=== PATIENT | female | born 1955 | race Caucasian/White ===

== ENCOUNTER 2016-11-30 14:31 | Inpatient (IN) | payer MEDICARE, OTHER ==
--- NOTE | ~2016-11-30 | HP ---
Unit #: [id number] #: [id number] Patient: SANTOS SAN [id number] [address] [address] [id number] I MR#: [id number] NAME: SANTOS SAN ROOM: 56337 Age: 61 Sex: F Admission Date: 11/30/2016 : 1955 Attending Physician: Alicia Sun M.D. Primary Care Physician: Balaji Mattehws M.D. HISTORY AND PHYSICAL CHIEF COMPLAINT Strokelike symptoms. HISTORY OF PRESENT ILLNESS The patient is a 61-year-old female with a past medical history of congestive heart failure, mental retardation, borderline personality, and PICA, who presented to the emergency department from the care facility for evaluation of the above. History is obtained from chart review and discussion with ER staff, as well as from the person accompanying the patient from the facility. The patient was apparently in her usual state of health until the morning of admission when she had abnormal speech. She was apparently woken up around 7:30. She had physical therapy at 8:45 and stated that she felt sleepy. The patient was apparently put back to bed around 9:45 and reportedly slept from 10:15 to 11:30 when she woken up again to check vital signs. Per the facility sales donor recruitment representative, her vital signs were abnormal (no details), and she was sent to the emergency department for further evaluation. Upon arrival in the emergency department, a code stroke was called. She was seen by Neurology. She was very combative and not cooperative. She was noted to have garbled speech but was otherwise nonfocal. A CT of the head was done and showed nothing acute. She was not thought to be a candidate for any type of intervention. Chest x-ray shows bilateral infiltrates and congestion. Her initial temperature was 95.7 and blood pressure 107/47. She was given a milligram of Ativan due to severe agitation. Blood pressure then dropped into the 80s systolic. She was given a 500 mL normal saline bolus, as well as two grams of vancomycin. She is being admitted to [facility] for evaluation and further treatment. PAST MEDICAL HISTORY 1. Mental retardation. 2. Borderline personality. 3. PICA. 4. Immobility. PAST SURGICAL HISTORY 1. Cataract surgery. 2. Colonoscopy October 06, 2010, was normal. 3. Open reduction and internal fixation right ring finger. SOCIAL HISTORY Unit #: [id number] #: [id number] Patient: SANTOS SAN The patient lives in a facility. There is no tobacco or alcohol use. She is immobile. She has a guardian (Unruly Palomares, phone number [phone], ext. [phone]). FAMILY HISTORY Unobtainable. ALLERGIES HONEY AND CEPHALOSPORINS. HOME MEDICATIONS 1. Tylenol 500 mg t.i.d. 2. Zyloprim 200 mg at bedtime. 3. Brimonidine eyedrops t.i.d. 4. Certa-Rebecca daily. 5. Divalproex 1000 mg at bedtime. 6. Escitalopram 10 mg at bedtime. 7. Fish oil twice daily. 8. Floranex daily. 9. Lasix 10 mg daily. 10. Glucosamine 500 mg twice daily. 11. Latanoprost eyedrops at bedtime. 12. L-Carnitine 500 mg in the morning. 13. Levothyroxine 25 mcg daily. 14. Magnesium 800 mg at bedtime. 15. ReVia 50 mg at bedtime. 16. Oyster shell plus D daily. 17. Ranitidine 75 mg twice daily. 18. Timolol eyedrops 3 times daily. 19. Loperamide p.r.n. 20. Maalox p.r.n. 21. Milk of Magnesia p.r.n. REVIEW OF SYSTEMS The patient is on a special diet. At home, she is on thin liquids and no straws. PHYSICAL EXAMINATION VITAL SIGNS: Temperature is 95.7, pulse 63, respirations 18, blood pressure 107/47, and oxygen saturation 99% on 2 liters. GENERAL: Patient is a female who is currently lethargic following Ativan. She was initially combative. HEENT: Head is atraumatic. Mucous membranes are moist. NECK: Supple. Trachea is midline. CARDIOVASCULAR: Regular rate and rhythm. LUNGS: A few scattered rhonchi. Breathing is not labored. ABDOMEN: Soft and nontender with bowel sounds present in all four quadrants. EXTREMITIES: No pedal edema. Nontender. NEUROLOGIC: Patient is really uncooperative for exam. Upon presentation, she was agitated and moving all extremities. She was noted to have slurred speech, but otherwise, nothing focal. PSYCHIATRIC: Unable to assess. Again, she was quite agitated initially. SKIN: Skin of examined areas is warm and dry. DIAGNOSTIC STUDIES LABORATORY: Complete blood count notable for MCV of 105.1 and platelets are 139,000. Troponin is less than 0.05. INR is 0.9. Urinalysis is Unit #: [id number] #: [id number] Patient: SANTOS SAN essentially normal. Comprehensive metabolic panel notable for a bicarb of 32, alkaline phosphatase 93, and albumin 3.3. Lactic acid is 1.7. IMAGING: Chest x-ray shows bilateral infiltrates and congestion. CT of the head shows nothing acute. CARDIOLOGY: EKG shows normal sinus rhythm with a rate of 60 beats per minute. ASSESSMENT The patient is a 61-year-old female with: 1. Altered mental status. 2. Abnormal speech. 3. Congestive heart failure exacerbation with unknown ejection fraction. 4. Possible healthcare-associated pneumonia. The patient received vancomycin in the emergency department. 5. Possible sepsis. 6. Mental retardation. 7. Borderline personality. 8. Posterior inferior communicating artery. 9. Immobility. PLAN 1. Admit to ICU. 2. N.p.o. until speech evaluation. 3. Speech Therapy to evaluate and treat. 4. TSH, B12, and folate. 5. Neuro checks. 6. Consult Dr. Gutierrez regarding altered mental status and abnormal speech. 7. A 2D echo for further evaluation of CHF. 8. Strict I/Os. 9. Daily weights. 10. Serial cardiac enzymes. 11. Consult Dr. Capone regarding CHF. 12. Dobutamine drip for MAP greater than 65. 13. Blood cultures x2. 14. Sputum culture and sensitivity. 15. Supplemental oxygen for saturations greater than 92%. 16. Procalcitonin level. 17. Streptococcal and legionella urine antigens. 18. Vancomycin IV, tobramycin IV, Levaquin, and aztreonam for possible healthcare-associated pneumonia pending further workup. 19. Sepsis protocol (1) with repeat admission and healthcare-associated pneumonia. 20. DuoNebs. 21. Protonix for GI prophylaxis. 22. SCDs for DVT prophylaxis. 23. Repeat labs in the morning. 24. Additional workup and consultants based on above. Thirty-two (32) minutes critical care time spent in the care of this patient (2:35 to 3:07 p.m.). Dictated by Jay Lang/markus Unit #: [id number] #: [id number] Patient: SANTOS SAN TD: 11/30/2016 15:45 JOB #: [id number] HISTORY AND PHYSICAL Page 1 of 1 X Alicia Sun MD X HISTORY AND PHYSICAL
--- NOTE | ~2016-11-30 | CR72 ---
[facility] A Service of [facility] & [facility] RADIOLOGY TEXT RESULTS PATIENT: SANTOS SAN [facility] UN[facility] #: [id number] AGE: [address]: Alicia Sun MD SEX: F ORDER DR: [id number] [facility] [address] [place], [place] [address] [id number] E MR#: [id number] Acc #: [id number] NAME: SANTOS SAN : 1955 SEX: F STUDY DATE/TIME: 11/30/2016 13:42 UNIT: [facility] ROOM: STUDY DESCRIPTION: CR Chest Single View Portable Attending Physician: James Vallejo M.D. Ordering Physician: James Vallejo M.D. Primary Care Physician: Balaji Matthews M.D. MEDICAL IMAGING REPORT This report is preliminary unless electronic signature is present EXAM Portable chest 11/30/2016 HISTORY Shortness of breath onset today. TECHNIQUE Single view of the chest was obtained. FINDINGS Cardiomegaly is noted. The aorta is tortuous and ectatic. In the lungs pulmonary vascular markings are mildly prominent. No pleural fluid is seen. No definite focal infiltrates are noted. Interstitial markings are mildly prominent as well. IMPRESSION Mild nonspecific bilateral interstitial infiltrates and vascular congestion noted. This likely reflects interstitial edema from heart disease. Cardiomegaly is seen and the aorta is tortuous. No previous studies available for comparison. Dictated by... Solo Ontiveros M.D. THIS IS AN ELECTRONICALLY VERIFIED REPORT Solo Ontiveros M.D. at 11/30/2016 6:02 PM BOBBI/violeta TD: 11/30/2016 15:28 JOB #: [id number] MEDICAL IMAGING REPORT Page 1 of 1 COPY
--- NOTE | ~2016-11-30 | CO ---
Unit #: [id number] #: [id number] Patient: SANTOS SAN [id number] [address] [address] [id number] I MR#: [id number] NAME: SANTOS SAN ROOM: 99259 Age: 61 Sex: F Admission Date: 11/30/2016 : 1955 Attending Physician: Alicia Sun M.D. Primary Care Physician: Balaji Matthews M.D. Consultation Date: 11/30/2016 CONSULTATION REPORT REASON FOR CONSULTATION Critical care management. CHIEF COMPLAINT Stroke-like symptoms. HISTORY OF PRESENT ILLNESS A 61-year-old female with a past medical history of mental retardation, PICA syndrome, and history of chronic immobility, who lives in a healthcare facility, was transferred here because patient was combative and a code stroke was called. On admission to the emergency room, patient was combative and was given sedatives. I am seeing the patient at the bedside. Currently, she is pretty sedated. She is arousable but does not follow commands. REVIEW OF SYSTEMS Unobtainable. PAST MEDICAL HISTORY As described above. PAST SURGICAL HISTORY 1. Cataract. 2. Colonoscopy. 3. Right ring finger surgery. SOCIAL HISTORY Nonsmoker, no alcohol, and no drug abuse. FAMILY HISTORY Unobtainable. ALLERGIES HONEY AND CEPHALOSPORINS. MEDICATIONS 1. Tylenol. 2. Zyloprim. 3. Brimonidine. 4. Certa-Rebecca. 5. Divalproex. 6. Escitalopram. 7. Fish oil. 8. Floranex. Unit #: [id number] #: [id number] Patient: SANTOS SAN 9. Lasix. 10. Glucosamine. 11. Latanoprost. 12. L-Carnitine. 13. Levothyroxine. 14. Magnesium. 15. ReVia. 16. Oyster shell plus D. 17. Ranitidine. 18. Timolol. 19. Loperamide. 20. Maalox. 21. Milk of Magnesia. PHYSICAL EXAMINATION VITAL SIGNS: Temperature currently is 95, pulse 74, and blood pressure is 84/57. NEUROLOGICAL: She is lethargic. CARDIOVASCULAR: S1 plus S2. RESPIRATORY: Bilateral mild rhonchi. GASTROINTESTINAL: Nontender and soft. Bowel sounds positive. EXTREMITIES: Positive edema. DIAGNOSTIC STUDIES LABORATORY: Reviewed. Procalcitonin 0.05. White count is normal. IMAGING: Reviewed. ASSESSMENT 1. Altered mental status, rule out cerebrovascular accident. 2. Hypotension requiring pressors. 3. Questionable congestive heart failure with exacerbation, unlikely pneumonia. PLAN Admit the patient. Empiric antibiotic has been started. Will follow the cultures. Start patient on pressors. May need stress-dose steroid. Check a stat blood gas. Neurology following. Follow their recommendations. GI and DVT prophylaxis. Continue to monitor in the intensive care unit. We will place a central line as well. Thank you very much for this consultation. Total critical care time 65 minutes. Dictated by... Jay Carrasquillo/markus TD: 11/30/2016 18:53 JOB #: [id number] Unit #: [id number] #: [id number] Patient: SANTOS SAN CONSULTATION REPORT Page 1 of 1 X Yosi Cuadra MD X CONSULTATION REPORT
--- NOTE | ~2016-11-30 | CT57 ---
[facility] A Service of [facility] & [facility] RADIOLOGY TEXT RESULTS PATIENT: SANTOS SAN LOCATION: [address] : [birth year] UNIT #: [id number] AGE: [address]: Kimberly Walton MD SEX: F ORDER DR: [id number] [facility] [address] [place], [place] [address] [id number] I MR#: [id number] Acc #: [id number] NAME: SANTOS SAN : 1955 SEX: F STUDY DATE/TIME: 12/01/2016 8:09 UNIT: [facility] ROOM: [facility] STUDY DESCRIPTION: CT Chest Wo Cont Attending Physician: Kimberly Walton M.D. Ordering Physician: William Capone M.D. Primary Care Physician: Balaji Matthews M.D. MEDICAL IMAGING REPORT This report is preliminary unless electronic signature is present EXAM CT scan of the chest without contrast. HISTORY Evaluate abnormality seen on chest x-ray, 12/01/2016. Evaluate bilateral infiltrates. Followup possible infiltrates seen yesterday. COMPARISON STUDIES CT chest, 11/30/2016. TECHNIQUE Axial 5 mm images were obtained through the chest without IV contrast. This CT exam was performed with one or more of the following radiation dose reduction techniques: automatic exposure control, adjustment of mA and/or kV according to patient size, and iterative reconstruction. FINDINGS The study is somewhat limited by patient size. There is minimal atelectasis in the right base. I do not see any evidence of infiltrate in the upper lobes on either side. The gallbladder is normal. The aorta is normal in size and there is no mediastinal or hilar adenopathy. The visualized portions of the upper abdomen show a large low-density well-circumscribed area in the spleen. This about 5.7 cm in diameter and appears to be septated. This was present on the CT scan of the abdomen, 03/07/2016 and is not changed. IMPRESSION 1. No infiltrates are identified. There is minimal basilar atelectasis. 2. 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 3. Otherwise, the study is negative. [facility] A Service of [facility] & [facility] RADIOLOGY TEXT RESULTS PATIENT: SANTOS SAN LOCATION: [facility]3-17 : 55 UNIT #: [id number] AGE: [address]: Kimberly Walton MD SEX: F ORDER DR: Dictated by... Bon Patterson M.D. THIS IS AN ELECTRONICALLY VERIFIED REPORT Bon Patterson M.D. at 12/01/2016 2:31 PM CHIDI/dipesh TD: 12/01/2016 10:13 JOB #: [id number] MEDICAL IMAGING REPORT Page 1 of 1 COPY
--- NOTE | ~2016-11-30 | BMI ---
[facility] Nutrition Therapy DATE: 12/01/16 Patient: SANTOS SAN Physician: PRASHANT Address: [address] [place] [address] Room/Bed: [address], Zip: [place] [address] Admit Date: 11/30/16 Date of : [birth year] Height: 5 7 Weight: 266 121 HIGH BMI NOTE: ANTHROPOMETRICS: HT: 68" WT: 120.5 KG BMI: 40.4 INTERVENTION: 1. PUREED DIET/ HH/CC + HONEY THICK LIQUIDS RECOMMENDATIONS: 1. CONTINUE DIET PER ROPE CUTTER RECOMMENDATIONS WITH HH/CC RESTRICTIONS. Respectfully, GOYO NEWMAN RD, LD [employer] and Nutrition[facility] cc: client file
--- NOTE | ~2016-11-30 | US84 ---
[id number] [facility] [address] [place], [place] [address] [id number] I MR#: [id number] Acc #: [id number] NAME: SANTOS SAN : 1955 SEX: F STUDY DATE/TIME: 12/03/2016 10:46 UNIT: C3A PCU ROOM: 342 STUDY DESCRIPTION: US LE Veins Complete Xander Stdy Attending Physician: Kimberly Walton M.D. Ordering Physician: Ponce Madrid M.D. Primary Care Physician: Balaji Matthews M.D. MEDICAL IMAGING REPORT This report is preliminary unless electronic signature is present EXAM Bilateral lower extremity venous duplex Doppler INDICATIONS Bilateral lower extremity edema. COMPARISON No comparisons available. TECHNIQUE Venous ultrasound examination of both lower extremities was performed using grayscale, spectral Doppler and color flow Doppler imaging. FINDINGS The examination is negative. There is no evidence of deep venous thrombus from the groin to the lower calf bilaterally. Visualized greater saphenous veins are also patent. IMPRESSION Negative examination. No evidence of lower extremity deep venous thrombosis. Dictated by... Pool Wu M.D. THIS IS AN ELECTRONICALLY VERIFIED REPORT Pool Wu M.D. at 12/04/2016 2:11 PM JIM/melania TD: 12/03/2016 18:35 JOB #: [id number] MEDICAL IMAGING REPORT Page 1 of 1 COPY
--- NOTE | ~2016-11-30 | DS ---
Unit #: [id number] #: [id number] Patient: SANTOS SAN [id number] [address] [address] [id number] I MR#: [id number] NAME: SANTOS SAN ROOM: [facility] Age: 61 Sex: F Admission Date: 11/30/2016 : 1955 Discharge Date: 12/04/2016 Attending Physician: Kimberly Walton M.D. Primary Care Physician: Balaji Matthews M.D. DISCHARGE SUMMARY PRINCIPAL DIAGNOSES 1. Acute hypercapnic hypoxic respiratory failure, now resolved. 2. Toxic metabolic encephalopathy, likely secondary to respiratory failure plus/minus medications. 3. Hypotension, now resolved. 4. Acute kidney injury, prerenal. 5. Obstructive sleep apnea, untreated. 6. Thrombocytopenia, chronic. Discharge platelet count 136,000. 7. Hypomagnesemia. 8. Mild diastolic congestive heart failure with ejection fraction of 55%. 9. Cfvd-hm-tulhkeek tricuspid regurgitation. 10. Chronic kidney disease stage 3 with baseline creatinine of 1.1. 11. Non ST elevation myocardial infarction type 2, secondary to demand ischemia, medical management. 12. Morbid obesity. 13. Mild mitral regurgitation. 14. Bipolar disorder. 15. Borderline personality disorder. 16. Chronic immobility. 17. Moderate protein malnutrition. CONSULTANTS 1. Dr. Cuadra, Pulmonology. 2. Dr. Capone, Cardiology. 3. Dr. Gutierrez, Neurology. PROCEDURES 1. Two-dimensional echocardiogram on December 01, 2016, with grade 1 diastolic dysfunction, ejection fraction 50% to 55%. Hypokinetic motion in the anterior septal fiore noted. Mvos-lm-wifwxlri tricuspid regurgitation noted. 2. Bilateral lower extremity venous Doppler which is negative for DVT. 3. CT of the head without contrast on November 30, 2016 with generalized atrophy. 4. CT of the chest without contrast on November 30, 2016, with questionable ground-glass infiltrate in the right lung. 5. CT of the chest without contrast on December 01, 2016, which was negative for infiltrate, 5.7 cm cyst or hemangioma in the spleen that is stable. 6. EEG which was nonspecific. CLINICAL HISTORY AND HOSPITAL COURSE Ms. San is a 61-year-old female sent from her care Unit #: [id number] #: [id number] Patient: SANTOS SAN with slurred speech and change in mental status. Please refer to H and P for further details. In the emergency department, there was concern that perhaps the patient had stroke and code stroke was called; however, she had nonfocal findings and CT scan was unremarkable in the emergency department. It is not felt patient had stroke; however, she was found to be mildly hypotensive in addition to being in respiratory failure and was admitted to the ICU. Dr. Cuadra was consulted and patient was maintained on oxygen. For a short period, she was also placed on pressor therapy. She was started on empiric antibiotics given concerns for sepsis but infectious workup was completely negative and antibiotics were discontinued. Fortunately, she was able to be titrated off Levophed and subsequently transferred to the floor. From a respiratory standpoint, the patient remained stable. She has no evidence of PE with a negative D-dimer and negative bilateral lower extremity venous Dopplers. She has been titrated off oxygen. I will note that her O2 saturations are on the low end of normal in the low 90s on room air and I think a lot of this is due to her body habitus and to atelectasis and she has been encouraged to breathe deeply. She does have significant underlying obstructive sleep apnea and did tolerate CPAP while hospitalized. She would benefit from an outpatient sleep study and initiation of CPAP. Dr. Capone was consulted given a mildly elevated troponin of 0.18 which subsequently trended down. Given her other medical co-morbidities, plan is treatment medically only. There were concerns that perhaps she had some mild diastolic congestive heart failure but echo was really unrevealing. There was no edema on chest x-ray and diuretics were discontinued. Diuretics did lead to a bump in her creatinine. I am going to give her a small dose of IV fluids prior to discharge. I am also going to hold her Lasix upon discharge and evaluation for re-initiation can be done at [facility]. The cause of patient's mental status is unclear to me. Her family is concerned it is medication, though I do not have a lot of indication based on her home meds that this would be the case. I am not sure, perhaps it was behavioral in origin but either way she has improved to baseline and will be discharged back to [facility] today. DISCHARGE CONDITION Stable. DISCHARGE STATUS Discharge to [facility]. DISCHARGE MEDICATIONS 1. Tylenol 500 mg p.o. t.i.d. 2. Magnesium oxide 800 mg at bedtime. 3. Valproic acid 250 mg p.o. t.i.d. Note, this is a dose change. 4. Lexapro 10 mg at bedtime. 5. Floranex one tablet daily. 6. Loperamide 4 mg p.o. p.r.n. for diarrhea. 7. L-Carnitine 500 mg in the morning. 8. Timolol 5 mg t.i.d. to each eye. 9. Milk of Magnesia 60 mL p.o. daily p.r.n. for constipation. 10. Latanoprost 2.5 mg at bedtime to both eyes. 11. Brimonidine 5 mL p.o. t.i.d. to both eyes. 12. Zantac 75 mg b.i.d. Unit #: [id number] #: [id number] Patient: SANTOS SAN 13. Allopurinol 200 mg at bedtime. 14. Fish oil 1000 mg daily. 15. Certa-Rebecca with lutein one tablet daily. 16. Aspirin 81 mg daily. 17. Revia 50 mg at bedtime. 18. Calcium 500 plus D one daily. 19. Levothyroxine 75 mcg daily. DISCHARGE INSTRUCTIONS 1. The patient was instructed to follow a heart healthy, low calorie diet. 2. She can increase her activity as tolerated. FOLLOWUP The patient will follow up with her primary care provider, Dr. Balaji Matthews, upon return to the facility. Dictated by... Kimberly Walton M.D. ROBERTO/isidoro TD: 12/04/2016 12:41 JOB #: [id number] DISCHARGE SUMMARY Page 1 of 1 X Kimberly Walton MD X DISCHARGE SUMMARY
--- NOTE | ~2016-11-30 | CO ---
Unit #: [id number] #: [id number] Patient: SANTOS SAN [id number] [address] [address] [id number] I MR#: [id number] NAME: SANTOS SAN ROOM: 09161 Age: 61 Sex: F Admission Date: 11/30/2016 : 1955 Attending Physician: Alicia Sun M.D. Primary Care Physician: Balaji Matthews M.D. Consultation Date: 11/30/2016 CONSULTATION REPORT REASON FOR CONSULTATION Possible CHF. HISTORY OF PRESENT ILLNESS The patient is a 61-year-old female who has mental retardation and borderline personality disorder. She is a long-term resident at [facility]. Per my discussion with the ER physician, the ER nurse, and the tech who is from [facility], the patient does not have a cardiac history. She has never had a myocardial infarction in the past. Her past medical history includes hyperlipidemia, hypothyroidism, edema, mental retardation, borderline personality disorder, glaucoma, and she is a nonsmoker. The patient was reportedly undergoing physical therapy this afternoon when the therapist noted that she started to have slurring of her speech. This was approximately 30 minutes prior to arrival in the emergency department. When patient arrived, a Code Stroke was called and no focal deficits were identified. The patient was combative at this time. The patient did receive some Ativan and her blood pressure did drop into the 80s. Reportedly, patient's blood pressure rebounded with IV fluids. At present, patient is unable to give me any specific details because she is still sedated from her Ativan. She does open her eyes and moan. She does withdraw from all four extremities. In the ER, her EKG was unremarkable and her POC troponin was less than 0.05. PAST MEDICAL HISTORY 1. Mental retardation. 2. Borderline personality disorder. 3. Long-term resident at [facility]. 4. Hypothyroidism. 5. Hyperlipidemia. 6. Edema. 7. GERD. PAST SURGICAL HISTORY None reported. HOME MEDICATIONS Include: 1. Tylenol Extra Strength 500 mg p.o. t.i.d. 2. Allopurinol 200 mg p.o. h.s. 3. Brimonidine tartrate 5 mL both eyes t.i.d. Unit #: [id number] #: [id number] Patient: SANTOS SAN 4. Thera-Rebecca with Lutein tablet one tab p.o. daily. 5. Divalproex sodium ER 1000 units p.o. h.s. 6. Lexapro 10 mg p.o. h.s. 7. Fish oil 1000 mg p.o. b.i.d. 8. Floranex one tablet p.o. daily. 9. Lasix 10 mg p.o. daily. 10. Glucosamine 500 mg p.o. b.i.d. 11. Latanoprost 2.5 mL both eyes at bedtime one drop. 12. L-carnitine 500 mg p.o. q.a.m. 13. Levothyroxine 25 mcg p.o. q.a.m. 14. Magnesium 800 mg p.o. h.s. 15. ReVia 50 mg p.o. h.s. 16. Oyster shell plus vitamin D one tab p.o. daily. 17. Ranitidine 75 mg p.o. b.i.d. 18. Loperamide 2 mg p.o. p.r.n. 19. Maalox 15 mL p.o. q.4 h. p.r.n. 20. Milk of magnesia 60 mL p.o. daily p.r.n. ALLERGIES 1. Cephalosporins. 2. Honey. SOCIAL HISTORY The patient is a resident at [facility]. Reportedly the patient is active with physical therapy and has clear speech. FAMILY HISTORY Unknown. REVIEW OF SYSTEMS A 10-point review of systems was attempted but patient was unable to complete secondary to mentation. PHYSICAL EXAMINATION VITAL SIGNS: Temperature 95.7 per Martins catheter temperature, heart rate 56, respirations 18, blood pressure 103/57. GENERAL: The patient is arousable, in no acute distress. HEENT: Head is atraumatic, normocephalic. Pupils are equal, round, and reactive. Extraocular movements are intact. No drainage from ears or nares. NECK: Supple. Trachea is midline. No lymphadenopathy or thyromegaly is appreciated. LUNGS: Diminished bilaterally with crackles in the bases. HEART: S1, S2, regular rate and rhythm. No murmurs, rubs, or gallops are appreciated. ABDOMEN: Soft, nontender, nondistended. She is obese. No hepatosplenomegaly is appreciated. EXTREMITIES: No clubbing or cyanosis. The patient has mild bilateral lower extremity edema. GENITOURINARY: The patient has a Martins catheter in with clear yellow urine. SKIN: Appears to be warm, dry and intact. NEUROLOGIC: The patient is arousable and moans. She moves all extremities. DIAGNOSTIC STUDIES LABORATORY: POC troponin is less than 0.05. Sodium 140, potassium 4.4, chloride 103, CO2 is 32, BUN 23, creatinine 1.2, glucose 95. White blood Unit #: [id number] #: [id number] Patient: SANTOS SAN cell count 5.4, hemoglobin 13.8, hematocrit 43.3, platelets 139. TSH 4.1. INR 0.9. IMAGING: Chest x-ray shows vascular congestion and possible infiltrates. CT of the chest pending. CARDIOVASCULAR: EKG shows normal sinus rhythm. ASSESSMENT 1. Altered mental status, rule out toxic metabolic encephalopathy, stroke. 2. Abnormal speech. 3. Vascular congestion, rule out congestive heart failure. 4. Healthcare-associated pneumonia, possible sepsis. 5. Hyperlipidemia. 6. Hypothyroidism. 7. Edema. 8. Mental retardation. 9. Borderline personality disorder. 10. Glaucoma. 11. Long-term resident of [facility]. 12. Hypotension. 13. Nonsmoker. 14. Gastroesophageal reflux disease. PLAN 1. The hospitalist team is admitting and has initiated sepsis protocol and dobutamine for low blood pressure after Ativan. 2. CT of the chest is pending. 3. She is on antibiotics. 4. Will check echo. 5. Trend enzymes. 6. I discussed with Dr. Capone and he would like the patient to have Lasix later tonight. Dictated by... Xenia Amin A.P.R.N. for Jay Castellanos TD: 11/30/2016 16:38 JOB #: [id number] Unit #: [id number] #: [id number] Patient: SANTOS SAN CONSULTATION REPORT Page 1 of 1 X Xenia Amin APRN CONSULTATION REPORT
--- NOTE | ~2016-11-30 | CR72 ---
[facility] A Service of [facility] RADIOLOGY TEXT RESULTS PATIENT: SANTOS SAN LOCATION: CEDOF : 55 UNIT #: [id number] AGE: [address]: Alicia Sun MD SEX: F ORDER DR: [id number] [facility] [address], [place] [address] [id number] I MR#: [id number] Acc #: [id number] NAME: SANTOS SAN : 1955 SEX: F STUDY DATE/TIME: 11/30/2016 17:50 UNIT: CEDOF ROOM: 64801 STUDY DESCRIPTION: CR Chest Single View Portable Attending Physician: Alicia Sun M.D. Ordering Physician: Yosi Cuadra M.D. Primary Care Physician: Balaji Matthews M.D. MEDICAL IMAGING REPORT This report is preliminary unless electronic signature is present EXAM Portable chest HISTORY Line placement COMPARISON 11/30 earlier in the day TECHNIQUE Single view of the chest was obtained FINDINGS A right-sided central line is seen with the tip in good position in the superior vena cava. The heart and mediastinum are stable. Pulmonary vascular markings are less prominent than on the previous exam and no new infiltrates are seen. IMPRESSION Central line in satisfactory position with the tip in the lower superior vena cava. Pulmonary vascular congestion shows improvement since the previous exam. STAT * RESULT Dictated by... Solo Ontiveros M.D. THIS IS AN ELECTRONICALLY VERIFIED REPORT Solo Ontiveros M.D. at 11/30/2016 6:35 PM [facility] A Service [facility] RADIOLOGY TEXT RESULTS PATIENT: SANTOS SAN LOCATION: CEDOF : 55 UNIT #: [id number] AGE: [address]: Alicia Sun MD SEX: F ORDER DR: BOBBI/allie TD: 11/30/2016 18:00 JOB #: [id number] MEDICAL IMAGING REPORT Page 1 of 1 COPY
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
--- NOTE | ~2016-11-30 | CR72 ---
[facility] A Service of [facility] RADIOLOGY TEXT RESULTS PATIENT: SANTOS SAN LOCATION: C3A 342-01 : 55 UNIT #: [id number] AGE: [address]: Kimberly Walton MD SEX: F ORDER DR: [id number] [place], [place] [address] [id number] I MR#: [id number] Acc #: [id number] NAME: SANTOS SAN : 1955 SEX: F STUDY DATE/TIME: 12/01/2016 4:00 UNIT: [facility] ROOM: [facility] STUDY DESCRIPTION: CR Chest Single View Portable Attending Physician: Kimberly Walton M.D. Ordering Physician: James Vallejo M.D. Primary Care Physician: Balaji Matthews M.D. MEDICAL IMAGING REPORT This report is preliminary unless electronic signature is present EXAM Frontal chest, 12/01/2016 INDICATION Short of air and chest pain in a 61-year-old female, altered mental status, congestive heart failure. Symptoms since 11/30/2016. TECHNIQUE Frontal chest was performed. COMPARISON 11/30/2016 FINDINGS Right-sided central line unchanged. Cardiac silhouette is enlarged. Lung volumes are stable to slightly lower and there is bronchovascular crowding or slight interval worsening of vascular congestion. No new effusion, dense consolidation or pneumothorax. IMPRESSION 1. Worsening appearance of the chest compared to the prior study. The heart is enlarged and imaging features suggest vascular congestion that has developed in the interval. No new effusion, pneumothorax or dense consolidation. 2. Right-sided central line unchanged. Dictated by... Paras Damian M.D. THIS IS AN ELECTRONICALLY VERIFIED REPORT Paras Damian M.D. at 12/04/2016 9:13 AM Kirt [facility] A Service of [facility] RADIOLOGY TEXT RESULTS PATIENT: SANTOS SAN LOCATION: C3A 342-01 : 55 UNIT #: [id number] AGE: [address]: Kimberly Walton MD SEX: F ORDER DR: TD: 12/01/2016 08:55 JOB #: [id number] MEDICAL IMAGING REPORT Page 1 of 1 COPY
--- NOTE | ~2016-11-30 | EE ---
Unit #: [id number] #: [id number] Patient: SANTOS SAN [id number] [address] [address] [id number] I MR#: [id number] NAME: SANTOS SAN : 1955 SEX: F STUDY DATE/TIME: 12/01/2016 UNIT: C3A PCU ROOM: 342 STUDY DESCRIPTION: EEG Attending Physician: Kimberly Walton M.D. Referring Physician: Kimberly Walton M.D. Primary Care Physician: Balaji Matthews M.D. NEURODIAGNOSTICS REPORT PROCEDURE PERFORMED EEG. REASON FOR STUDY Mental status changes. EEG DESCRIPTION This is an inpatient, portable, digitally recorded, multi-montage, adult EEG with leads placed according to the International 10-20 system. PROCEDURE REPORT With EEG shows lack of good alpha rhythm. There is some alpha activity, but otherwise, sometimes faster frequencies, other times slow. The dominant feature of this EEG seems to be artifact, mostly at T4, sometimes at C4 and Pz. Nothing suggesting clearcut interictal discharges or clinical events. No spikes or seizures or other activity was seen. Some show disorganized and moving EEG. IMPRESSION Abnormal EEG showing mild diffuse slowing and lack of good sustained alpha, which is nonspecific. Clinical correlation is recommended. EEG like this does not rule out epilepsy. Dictated by... Jay Islas/jam TD: 12/03/2016 11:50 JOB #: [id number] Unit #: [id number] #: [id number] Patient: SANTOS SAN NEURODIAGNOSTICS REPORT Page 1 of 1 X Stephania Gutierrez MD NEURODIAGNOSTICS REPORT
--- NOTE | ~2016-11-30 | CT57 ---
[facility] A Service of [facility] RADIOLOGY TEXT RESULTS PATIENT: SANTOS SAN LOCATION: [facility] CICCU3-17 : 55 UNIT #: [id number] AGE: [address]: Kimberly Walton MD SEX: F ORDER DR: [id number] [facility] [address] [facility]. [place], [place] [address] [id number] I MR#: [id number] Acc #: [id number] NAME: SANTOS SAN : 1955 SEX: F STUDY DATE/TIME: 11/30/2016 15:50 UNIT: CEDOF ROOM: 59592 STUDY DESCRIPTION: CT Chest Wo Cont Attending Physician: Alicia Sun M.D. Ordering Physician: James Vallejo M.D. Primary Care Physician: Balaji Matthews M.D. MEDICAL IMAGING REPORT This report is preliminary unless electronic signature is present EXAM CT of the chest without contrast INDICATION Chest pain starting today. Patient has also shortness of breath. TECHNIQUE Axial CT images were obtained from the thoracic inlet through the dome of the diaphragm. No intravenous contrast material was administered. This CT exam was performed with one or more of the following radiation dose reduction techniques: automatic control, adjustment of mA and/or kV according to patient size, and iterative reconstruction. FINDINGS The thyroid gland trachea and esophagus appear unremarkable. Thoracic aorta measures within normal size limits. Mediastinal and hilar lymph nodes do not appear pathologically enlarged. No definite pleural or pericardial effusion is seen. There may be some patchy ground-glass infiltrate within the right upper lobe which could be infectious or inflammatory in etiology and there is some dependent atelectasis. Overall lung volumes are diminished. Images through the upper abdomen do not demonstrate any acute abnormalities. Review of bony windows does not demonstrate any aggressive osseous abnormalities. IMPRESSION This examination is significantly degraded by significant respiratory artifact as well as the patient's body habitus. There is a suggestion of perhaps some ground-glass infiltrate at the right lung apex. Certainly could be infectious or inflammatory in etiology [facility] A Service of [facility] RADIOLOGY TEXT RESULTS PATIENT: SANTOS SAN LOCATION: [facility] CICCU3-17 : 55 UNIT #: [id number] AGE: [address]: Kimberly Walton MD SEX: F ORDER DR: Dictated by... Evelia Vicente M.D. THIS IS AN ELECTRONICALLY VERIFIED REPORT Evelia Vicente M.D. at 12/01/2016 7:53 AM AFF/rnr TD: 11/30/2016 19:20 JOB #: [id number] MEDICAL IMAGING REPORT Page 1 of 1 COPY
--- NOTE | ~2016-11-30 | CT72 ---
[facility] A Service of [facility] RADIOLOGY TEXT RESULTS PATIENT: SANTOS SAN LOCATION: [facility] : 55 UNIT #: [id number] AGE: [address]: James Vallejo MD SEX: F ORDER DR: [id number] [facility] [address] [place], [place] [address] [id number] MR#: [id number] Acc #: [id number] NAME: SANTOS SAN : 1955 SEX: F STUDY DATE/TIME: 11/30/2016 12:58 UNIT: [facility] ROOM: STUDY DESCRIPTION: CT Head Wo Contrast Stroke Attending Physician: James Vallejo M.D. Ordering Physician: James Vallejo M.D. Primary Care Physician: Balaji Matthews M.D. MEDICAL IMAGING REPORT This report is preliminary unless electronic signature is present EXAM Head CT 11/30/16 INDICATIONS Slurred speech and combativeness that started today. Remaining medical history is unknown due to patient condition. TECHNIQUE This CT exam was performed with one or more of the following radiation dose reduction techniques: automatic exposure control, adjustment of mA and/or kV according to patient size, and iterative reconstruction. FINDINGS Axial images were obtained from the base to the vertex without contrast. No comparison. There is generalized atrophy. Ventricular size and configuration are within normal limits. Atherosclerotic calcifications are present in the vertebral arteries. No acute infarct or hemorrhage is seen. There are no masses. There are no skull fractures. IMPRESSION Generalized atrophy. No acute abnormalities. Dictated by... Solo Marie Jr., M.D. THIS IS AN ELECTRONICALLY VERIFIED REPORT Solo Marie Jr., M.D. at 11/30/2016 2:50 PM AJUN/lenny TD: 11/30/2016 14:42 [facility] A Service of [facility] RADIOLOGY TEXT RESULTS PATIENT: SANTOS SAN LOCATION: [facility] : 55 UNIT #: [id number] AGE: [address]: James Vallejo MD SEX: F ORDER DR: JOB #: [id number] MEDICAL IMAGING REPORT Page 1 of 1 COPY
--- NOTE | ~2016-11-30 | CR72 ---
[facility] A Service of [facility] & [facility] RADIOLOGY TEXT RESULTS PATIENT: SANTOS SAN LOCATION: [facility] 342-01 : 55 UNIT #: [id number] AGE: [address]: Kimberly Walton MD SEX: F ORDER DR: [id number] [facility] [address] [place], [place] [address] [id number] MR#: [id number] Acc #: [id number] NAME: SANTOS SAN : 1955 SEX: F STUDY DATE/TIME: 12/02/2016 5:07 UNIT: [facility] ROOM: [facility] STUDY DESCRIPTION: CR Chest Single View Portable Attending Physician: Kimberly Walton M.D. Ordering Physician: Yosi Cuadra M.D. Primary Care Physician: Balaji Matthews M.D. MEDICAL IMAGING REPORT This report is preliminary unless electronic signature is present EXAM Portable chest, 12/02/2016 HISTORY 61-year-old female with chest pain and shortness of air for 2 days. COMPARISON Chest, 12/01/2016 FINDINGS Frontal chest demonstrates stable right subclavian central venous catheter. No pneumothorax. No significant change in central vascular congestion and mild bilateral interstitial opacities. Heart size is stable. IMPRESSION No change in cardiomegaly with central vascular congestion and bilateral interstitial opacities. Dictated by... Claude Correa M.D. THIS IS AN ELECTRONICALLY VERIFIED REPORT Claude Correa M.D. at 12/02/2016 11:29 PM Angelina TD: 12/02/2016 15:53 JOB #: [id number] MEDICAL IMAGING REPORT Page 1 of 1 COPY
--- NOTE | ~2016-11-30 | EKG ---
PATIENT: SANTOS SAN UNIT #: [id number] Ventricular Rate: 60 BPM Atrial Rate: 60 BPM P-R Interval: 176 ms QRS Duration: 94 ms Q-T Interval: 460 ms QTC Calculation(Bezet): 460 ms P Grannis: 58 degrees Calculated R Grannis: 5 degrees Calculated T Grannis: 61 degrees Diagnosis Line: Normal sinus rhythm Diagnosis Line: Increased R/S ratio in V1, consider early Diagnosis Line: transition or posterior infarct Diagnosis Line: Otherwise normal ECG Diagnosis Line: No previous ECGs available Diagnosis Line: Confirmed by JER SINGLETON MD ([id number]) on 12/01/2016 Diagnosis Line: 4:27:33 PM INTERPRETING MD: ARELI TREJO
--- NOTE | ~2016-11-30 | EKG ---
PATIENT: SANTOS SAN UNIT #: [id number] Ventricular Rate: 98 BPM Atrial Rate: 98 BPM P-R Interval: 178 ms QRS Duration: 94 ms Q-T Interval: 374 ms QTC Calculation(Bezet): 477 ms P [place]: 43 degrees Calculated T [place]: 81 degrees Diagnosis Line: Normal sinus rhythm Diagnosis Line: Minimal voltage criteria for LVH, may be normal Diagnosis Line: variant Diagnosis Line: Prolonged QT Diagnosis Line: Abnormal ECG Diagnosis Line: When compared with ECG of 30-NOV-2016 13:23, Diagnosis Line: (unconfirmed) Diagnosis Line: Vent. rate has increased BY 38 BPM Diagnosis Line: Confirmed by JER SINGLETON MD ([id number]) on 12/01/2016 Diagnosis Line: 4:42:01 PM INTERPRETING MD: ARELI TREJO
[2016-11-30 13:34] LABS: BASOPHIL% 0.3 % (0-2.5); DIFF IND YES; EOSINOPHIL# 0.1 X10e3 (0-0.7); EOSINOPHIL% 2.6 % (0.0-7.0); HEMATOCRIT 43.3 % (35.0-45.0); HEMOGLOBIN 13.8 gm/dL (12.0-16.0); LYMPHOCYTE# 2.3 X10e3 (1.0-3.5); LYMPHOCYTE% 42.3 % (17.0-45.0); MEAN CELL VOLUME 105.1 FL (83-96); MEAN CORPUSCULAR HEMOGLOBIN 33.5 PG (28-34); MEAN CORPUSCULAR HGB CONC 31.9 g/dL (30-36); MEAN PLATELET VOLUME 9.1 FL (6.5-11.5); MONOCYTE# 0.6 X10e3 (0-1.0); MONOCYTE% 10.5 % (3.0-12.0); NEUTROPHIL# 2.4 X10e3 (1.5-7.1); NEUTROPHIL% 44.3 % (40-75); PLATELET COUNT 139 X10e3 (140-420); RED BLOOD COUNT 4.12 X10e (3.90-5.30); RED CELL DISTRIBUTION WIDTH 15.2 % (11.0-15.5); WHITE BLOOD COUNT 5.4 X10e3 (4.0-10.5)
[2016-11-30 13:45] LABS: URINE SOURCE CLEAN CATCH
[2016-11-30 13:47] LABS: ANISOCYTOSIS SL; PLATELET ESTIMATE NORMAL (NORMAL)
[2016-11-30 13:49] LABS: POC - CKMB <1.0 ng/mL (0.0-7.9); POC - TROPONIN <0.05 ng/mL (<=0.05)
[2016-11-30 13:55] LABS: INR 0.9; PARTIAL THROMBOPLASTIN TIME 23.4 SECONDS (23.5-31.3); PROTHROMBIN TIME (PATIENT) 9.7 SECONDS (9.6-11.5)
[2016-11-30 13:56] LABS: URINE APPEARANCE CLEAR; URINE BILIRUBIN NEG (NEG); URINE BLOOD NEG (NEG); URINE COLOR YELLOW; URINE GLUCOSE NEG (NEG); URINE KETONE NEG (NEG); URINE LEUKOCYTE ESTERASE NEG (NEG); URINE NITRATE NEG (NEG); URINE PROTEIN NEG (NEG); URINE SPECIFIC GRAVITY 1.005 (1.003-1.035); URINE UROBILINOGEN 0.2 MG/DL (NEG)
[2016-11-30 14:01] LABS: CULTURE INDICATED? NO
[2016-11-30 14:05] LABS: ALBUMIN SERUM 3.3 g/dL (3.5-5.0); BILIRUBIN, DIRECT 0.1 mg/dL (0.0-0.2); BILIRUBIN,INDIRECT 0.4 mg/dL (0.0-0.9); BILIRUBIN,TOTAL 0.5 mg/dL (0.2-2.0); BUN/CREATININE RATIO 19.16; CALCIUM SERUM 9.5 mg/dL (8.4-10.2); CREATININE SERUM 1.2 mg/dL (0.6-1.4); GLOM FILT RATE Estimated 48.7 mL/min (>60); POTASSIUM 4.4 mmol/L (3.5-5.1); PROTEIN TOTAL SERUM 7.2 g/dL (6.0-8.3)
[~2016-11-30 14:31] MED LIST: ACETAMINOPHEN PO; ACID REDUCER75 M1 PO; BAZA PROTECT CR57 GM TOP; BRIMONIDINE5 ML OU; CERTAVITE W/LUT1 TA1 PO; DEPAKOTE ER PO; DEPAKOTE PO; DEPAKOTE125 MG PO; DIVALPROEX SOD500 M1 PO; ESCITALOPRAM OX10 MG PO; FISH OIL 1,0001 CA2 PO; FOSAMAX PO; GLUCOSAMINE500 M1 PO; HYDROCHLOROTHIA25 MG PO; IBUPROFEN PO; KLOR-CON PO; L-CARNITINE500 M1 PO; LASIX PO; LASIX20 MG PO; LATANOPROST2.5 ML OU; LEVOTHYROXINE25 MC1 PO; LEXAPRO PO; LOPERAMIDE HCL2 M1 PO; MAALOX SUSPENS355 ML; MAGNESIUM400 MG PO; METAMUCIL1 PKT PO; MI-ACID, M355 ML/SU1 PO; MIACALCIN; MIACALCIN4 ML; MILK OF MAGNESIA PO; MULTI-VITAMIN1 TAB PO; MYCOLOG II CREA15 GM TOP; OYSTER CALCIUM500 MG PO; OYSTER SHELL 51 EACH PO; PRILOSEC20 MG PO; REVIA50 MG PO; SYNTHROID PO; TIMOLOL MALEATE5 M1 OU; TYLENOL EXTRA500 M1 PO; VASOCIDIN O5 ML OPTH OS; VITAMIN D50000 UNIT PO; XALATAN OP; ZANTAC PO; ZOCOR PO; ZYLOPRIM PO; ZYLOPRIM100 MG PO; [UNRECOGNIZED DRUG - OTHER] PO
[2016-11-30 15:38] LABS: POC - CKMB <1.0 ng/mL (0.0-7.9); POC - TROPONIN <0.05 ng/mL (<=0.05)
[2016-11-30 16:33] LABS: FOLATE (FOLIC ACID) >23.6 ng/mL (>5.8)
[2016-11-30 17:58] LABS: ARTERIAL BLD GAS O2 SATURATION 90.6 % (90.0-100.0); ARTERIAL BLOOD GAS CARBOXY HB 0.7 %sat (0.0-9.0); ARTERIAL BLOOD GAS HCO3 32.6 mmol/L; ARTERIAL BLOOD GAS MET HB 0.8 %sat (0.0-2.0); ARTERIAL BLOOD GAS pH 7.322 (7.350-7.450)
[2016-11-30 17:59] LABS: ARTERIAL BLOOD GAS ALLEN TEST NORMAL; ARTERIAL BLOOD GAS ART SITE RIGHT BRACHIAL; ARTERIAL BLOOD GAS DELIVERY NASAL CANNULA; ARTERIAL BLOOD GAS PCO2 62.9 mmHg (35.0-45.0); ARTERIAL BLOOD GAS PO2 68.5 mmHg (80.0-100); ARTERIAL DRAW? YES
[2016-11-30 23:57] LABS: CK TOTAL 27 IU/L (26-140)
[2016-12-01 04:14] LABS: ARTERIAL BLD GAS O2 SATURATION 97.2 % (90.0-100.0); ARTERIAL BLOOD GAS CARBOXY HB 0.9 %sat (0.0-9.0); ARTERIAL BLOOD GAS pH 7.376 (7.350-7.450)
[2016-12-01 04:21] LABS: ARTERIAL BLOOD GAS ALLEN TEST NORMAL; ARTERIAL BLOOD GAS ART SITE RIGHT RADIAL; ARTERIAL BLOOD GAS DELIVERY NASAL CANNULA; ARTERIAL BLOOD GAS PCO2 56.4 mmHg (35.0-45.0); ARTERIAL DRAW? YES
[2016-12-01 04:34] LABS: BASOPHIL% 0.3 % (0-2.5); DIFF IND NO; EOSINOPHIL# 0.1 X10e3 (0-0.7); EOSINOPHIL% 2.3 % (0.0-7.0); HEMATOCRIT 41.6 % (35.0-45.0); HEMOGLOBIN 13.2 gm/dL (12.0-16.0); LYMPHOCYTE# 1.2 X10e3 (1.0-3.5); LYMPHOCYTE% 18.7 % (17.0-45.0); MEAN CELL VOLUME 105.7 FL (83-96); MEAN CORPUSCULAR HEMOGLOBIN 33.6 PG (28-34); MEAN CORPUSCULAR HGB CONC 31.8 g/dL (30-36); MONOCYTE# 0.7 X10e3 (0-1.0); MONOCYTE% 11.8 % (3.0-12.0); NEUTROPHIL# 4.2 X10e3 (1.5-7.1); NEUTROPHIL% 66.9 % (40-75); PLATELET COUNT 127 X10e3 (140-420); RED BLOOD COUNT 3.94 X10e (3.90-5.30); RED CELL DISTRIBUTION WIDTH 15.4 % (11.0-15.5); WHITE BLOOD COUNT 6.3 X10e3 (4.0-10.5)
[2016-12-01 04:58] LABS: BILIRUBIN,TOTAL 0.8 mg/dL (0.2-2.0); CALCIUM SERUM 9.2 mg/dL (8.4-10.2); CREATININE SERUM 1.1 mg/dL (0.6-1.4); GLOM FILT RATE Estimated 54.2 mL/min (>60); MAGNESIUM 1.4 mg/dL (1.6-3.0); POTASSIUM 3.5 mmol/L (3.5-5.1); PROTEIN TOTAL SERUM 6.8 g/dL (6.0-8.3)
[2016-12-01 04:59] LABS: CK TOTAL 34 IU/L (26-140)
[2016-12-02 04:35] LABS: ARTERIAL BLD GAS O2 SATURATION 95.2 % (90.0-100.0); ARTERIAL BLOOD GAS CARBOXY HB 0.5 %sat (0.0-9.0); ARTERIAL BLOOD GAS HCO3 36.9 mmol/L; ARTERIAL BLOOD GAS MET HB 0.7 %sat (0.0-2.0); ARTERIAL BLOOD GAS PO2 87.4 mmHg (80.0-100); ARTERIAL BLOOD GAS pH 7.376 (7.350-7.450)
[2016-12-02 04:57] LABS: ARTERIAL BLOOD GAS ALLEN TEST NORMAL; ARTERIAL BLOOD GAS ART SITE LEFT RADIAL; ARTERIAL BLOOD GAS DELIVERY NASAL CANNULA; ARTERIAL DRAW? YES
[2016-12-02 05:55] LABS: BASOPHIL% 0.6 % (0-2.5); EOSINOPHIL# 0.3 X10e3 (0-0.7); EOSINOPHIL% 5.1 % (0.0-7.0); HEMATOCRIT 40.1 % (35.0-45.0); HEMOGLOBIN 12.8 gm/dL (12.0-16.0); LYMPHOCYTE# 1.3 X10e3 (1.0-3.5); LYMPHOCYTE% 26.6 % (17.0-45.0); MEAN CELL VOLUME 105.7 FL (83-96); MEAN CORPUSCULAR HEMOGLOBIN 33.8 PG (28-34); MEAN PLATELET VOLUME 9.6 FL (6.5-11.5); MONOCYTE# 0.6 X10e3 (0-1.0); MONOCYTE% 12.9 % (3.0-12.0); NEUTROPHIL# 2.7 X10e3 (1.5-7.1); NEUTROPHIL% 54.8 % (40-75); PLATELET COUNT 124 X10e3 (140-420); RED BLOOD COUNT 3.79 X10e (3.90-5.30); RED CELL DISTRIBUTION WIDTH 15.1 % (11.0-15.5)
[2016-12-02 05:56] LABS: DIFF IND NO
[2016-12-02 06:42] LABS: ALBUMIN SERUM 2.9 g/dL (3.5-5.0); BUN/CREATININE RATIO 16.66; CALCIUM SERUM 9.3 mg/dL (8.4-10.2); CREATININE SERUM 1.5 mg/dL (0.6-1.4); GLOM FILT RATE Estimated 37.2 mL/min (>60); MAGNESIUM 1.9 mg/dL (1.6-3.0); PHOSPHOROUS 4.5 mg/dL (2.5-4.6); POTASSIUM 3.9 mmol/L (3.5-5.1); PROTEIN TOTAL SERUM 5.9 g/dL (6.0-8.3)
[2016-12-03 06:46] LABS: BASOPHIL% 0.4 % (0-2.5); EOSINOPHIL# 0.3 X10e3 (0-0.7); EOSINOPHIL% 6.5 % (0.0-7.0); HEMATOCRIT 38.3 % (35.0-45.0); HEMOGLOBIN 12.2 gm/dL (12.0-16.0); LYMPHOCYTE# 1.8 X10e3 (1.0-3.5); LYMPHOCYTE% 33.4 % (17.0-45.0); MEAN CELL VOLUME 105.9 FL (83-96); MEAN CORPUSCULAR HEMOGLOBIN 33.8 PG (28-34); MEAN CORPUSCULAR HGB CONC 31.9 g/dL (30-36); MEAN PLATELET VOLUME 9.6 FL (6.5-11.5); MONOCYTE# 0.7 X10e3 (0-1.0); NEUTROPHIL# 2.5 X10e3 (1.5-7.1); NEUTROPHIL% 46.7 % (40-75); PLATELET COUNT 121 X10e3 (140-420); RED BLOOD COUNT 3.61 X10e (3.90-5.30); RED CELL DISTRIBUTION WIDTH 14.9 % (11.0-15.5); WHITE BLOOD COUNT 5.4 X10e3 (4.0-10.5)
[2016-12-03 06:47] LABS: DIFF IND NO
[2016-12-03 07:14] LABS: ALBUMIN SERUM 2.6 g/dL (3.5-5.0); BILIRUBIN,TOTAL 0.6 mg/dL (0.2-2.0); BUN/CREATININE RATIO 19.47; CALCIUM SERUM 8.9 mg/dL (8.4-10.2); CREATININE SERUM 1.9 mg/dL (0.6-1.4); POTASSIUM 3.9 mmol/L (3.5-5.1); PROTEIN TOTAL SERUM 5.9 g/dL (6.0-8.3)
[2016-12-04 06:18] LABS: BASOPHIL% 0.2 % (0-2.5); EOSINOPHIL# 0.3 X10e3 (0-0.7); EOSINOPHIL% 5.6 % (0.0-7.0); HEMATOCRIT 38.7 % (35.0-45.0); HEMOGLOBIN 12.3 gm/dL (12.0-16.0); LYMPHOCYTE# 1.5 X10e3 (1.0-3.5); LYMPHOCYTE% 25.8 % (17.0-45.0); MEAN CELL VOLUME 106.3 FL (83-96); MEAN CORPUSCULAR HEMOGLOBIN 33.7 PG (28-34); MEAN CORPUSCULAR HGB CONC 31.7 g/dL (30-36); MEAN PLATELET VOLUME 9.9 FL (6.5-11.5); MONOCYTE# 0.8 X10e3 (0-1.0); MONOCYTE% 14.7 % (3.0-12.0); NEUTROPHIL# 3.1 X10e3 (1.5-7.1); NEUTROPHIL% 53.7 % (40-75); PLATELET COUNT 136 X10e3 (140-420); RED BLOOD COUNT 3.64 X10e (3.90-5.30); RED CELL DISTRIBUTION WIDTH 15.4 % (11.0-15.5); WHITE BLOOD COUNT 5.8 X10e3 (4.0-10.5)
[2016-12-04 06:23] LABS: DIFF IND YES
[2016-12-04 06:25] LABS: BUN/CREATININE RATIO 21.76; CALCIUM SERUM 9.3 mg/dL (8.4-10.2); CREATININE SERUM 1.7 mg/dL (0.6-1.4); POTASSIUM 4.3 mmol/L (3.5-5.1)
[2016-12-04 08:51] LABS: ANISOCYTOSIS SL; PLATELET ESTIMATE DECREASED (NORMAL); STOMATOCYTE PRESENT
[2016-12-04] MEDS ORDERED: DEPAKENE250 MG PO (13:13)
[2016-12-04] MEDS ORDERED: ASPIRIN81 M2 PO (13:13)
== END 2016-12-04 17:49 | disposition home or self-care (01) | DRG 280 ==
LOC: CED 14:31 → CEDOF 15:41 → CICCU3 12-01 01:16 → C3A PCU 12-02 20:44
PROVIDERS: Emergency Medicine; Family Medicine; Internal Medicine
PROC: B24BZZZ Ultrasonography of Heart with Aorta (ICD-10-PCS; principal; 2016-12-01)
DX: I50.31 Acute diastolic (congestive) heart failure (principal); J96.01 Acute respiratory failure with hypoxia; I21.4 Non-ST elevation (NSTEMI) myocardial infarction; G92 Toxic encephalopathy; I95.9 Hypotension, unspecified; J96.02 Acute respiratory failure with hypercapnia; D69.6 Thrombocytopenia, unspecified; N17.9 Acute kidney failure, unspecified; N18.3 Chronic kidney disease, stage 3 (moderate); I24.8 Other forms of acute ischemic heart disease; E44.0 Moderate protein-calorie malnutrition; Z68.43 Body mass index [BMI] 50.0-59.9, adult; G47.33 Obstructive sleep apnea (adult) (pediatric); I36.1 Nonrheumatic tricuspid (valve) insufficiency; E66.01 Morbid (severe) obesity due to excess calories; I34.0 Nonrheumatic mitral (valve) insufficiency; F31.9 Bipolar disorder, unspecified; F60.3 Borderline personality disorder; M62.3 Immobility syndrome (paraplegic); R47.81 Slurred speech; F79 Unspecified intellectual disabilities; H40.9 Unspecified glaucoma; E83.42 Hypomagnesemia; K21.9 Gastro-esophageal reflux disease without esophagitis; E78.5 Hyperlipidemia, unspecified; E03.9 Hypothyroidism, unspecified; Z88.1 Allergy status to other antibiotic agents; Z91.018 Allergy to other foods
CPT/HCPCS: 36415; 36600; 51702; 70450; 71010; 71250; 80048; 80053; 80061; 80076; 80164; 81003; 82140; 82308; 82550; 82553; 82607; 82746; 82803; 82947; 83605; 83735; 83880; 84100; 84443; 84484; 85025; 85379; 85610; 85730; 87040; 87449; 87899; 92526; 92610; 93005; 93306; 93970; 94640; 94660; 94760; 94761; 95816; 96360; 97162; 97167; 97530; 99291; C9113; G8978-GP; G8979-GP; G8980-GP; G8987-GO; G8988-GO; G8989-GO; G8996-GN; G8997-GN; G8998-GN; J1250; J1940; J1956; J2060; J3260; J3370; J3475

== ENCOUNTER → 2017-04-27 | Outpatient (CLI) | payer OTHER, MEDICARE ==
[~2017-04-27] MED LIST changes: +ASPIRIN81 M2 PO; +DEPAKENE250 MG PO
--- NOTE | ~2017-04-27 | CR126 ---
[facility] A Service of [facility] & [facility] RADIOLOGY TEXT RESULTS PATIENT: SANTOS SAN LOCATION: [facility] : 55 UNIT #: [id number] AGE: [address]: Gregoria Perdue MD SEX: F ORDER DR: [id number] [facility] [address] [place], [place] [address] [id number] O MR#: [id number] Acc #: [id number] NAME: SANTOS SAN : 1955 SEX: F STUDY DATE/TIME: 04/27/2017 13:03 UNIT: [facility] ROOM: STUDY DESCRIPTION: CR Foot Complete Min 3 View Lt Attending Physician: Gregoria Perdue M.D. Referring Physician: Gregoria Perdue M.D. Ordering Physician: Gregoria Perdue M.D. Primary Care Physician: Balaji Matthews M.D. MEDICAL IMAGING REPORT This report is preliminary unless electronic signature is present EXAM Three views left foot. DATE 04/27/2017 HISTORY 61-year-old female with left foot and ankle pain and swelling for 2-3 days after foot got caught in a chair. COMPARISON Left ankle radiographs 07/07/2016. No previous dedicated left foot radiographs for comparison. 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 This limits sensitivity for detection of subtle, nondisplaced fracture. However, no acute displaced fracture is seen and there is no joint dislocation identified. Intramedullary artur with distal interlocking screws is seen within the distal tibia, and as previously described, the tip of one of the cannulated distal interlocking screws protrudes nearly 1.3 cm beyond the posterior tibial cortex into the soft tissues. Degenerative joint space narrowing is seen within the midfoot and hindfoot, and within the first metatarsophalangeal joint. The second through fifth toes are in flexion, slightly limiting their evaluation. IMPRESSION 1. No acute left foot finding. 2. It should be recognized that the patient's advanced disuse osteopenia limits sensitivity for detection of subtle nondisplaced fracture. 3. A cannulated orthopedic screw is again seen extending 1.3 cm past the posterior cortex of the tibial metaphysis into the soft tissues. This can serve as a source of pain. This has been previously STS. [facility] A Service of [facility] & [facility] RADIOLOGY TEXT RESULTS PATIENT: SANTOS SAN LOCATION: [facility] : 55 UNIT #: [id number] AGE: [address]: Gregoria Perdue MD SEX: F ORDER DR: described on 07/07/2016. Dictated by... Carie Cheatham M.D. THIS IS AN ELECTRONICALLY VERIFIED REPORT Carie Cheatham M.D. at 05/02/2017 3:27 PM [facility]/melania TD: 04/28/2017 13:24 JOB #: [id number] MEDICAL IMAGING REPORT Page 1 of 1 COPY
--- NOTE | ~2017-04-27 | CR20 ---
[facility] A Service of [facility] & [facility] RADIOLOGY TEXT RESULTS PATIENT: SANTOS SAN LOCATION: [facility] : 55 UNIT #: [id number] AGE: [address]: Gregoria Perdue MD SEX: F ORDER DR: [id number] [facility] [address] [place], [place] [address] [id number] O MR#: [id number] Acc #: [id number] NAME: SANTOS SAN : 1955 SEX: F STUDY DATE/TIME: 04/27/2017 13:08 UNIT: [facility] ROOM: STUDY DESCRIPTION: CR Ankle Min 3 Views Lt Attending Physician: Gregoria Perdue M.D. Referring Physician: Gregoria Perdue M.D. Ordering Physician: Gregoria Perdue M.D. Primary Care Physician: Balaji Matthews M.D. MEDICAL IMAGING REPORT This report is preliminary unless electronic signature is present EXAM Left ankle INDICATIONS Left ankle pain for 2-3 days after getting foot caught in chair. FINDINGS Three views of the left ankle were obtained. There is a long medullary artur present in the distal tibia, and there is a metal plate and screws in the distal fibula. There is diffuse decreased bone density. No fracture is visible. IMPRESSION 1. Prior internal fixation of distal tibia and fibular fractures. 2. Marked diffuse decreased bone density. 3. Otherwise, normal. Dictated by... Bon Patterson M.D. THIS IS AN ELECTRONICALLY VERIFIED REPORT Bon Patterson M.D. at 04/28/2017 1:48 PM FEL/psc TD: 04/28/2017 12:53 JOB #: [id number] MEDICAL IMAGING REPORT Page 1 of 1 COPY
== END | disposition home or self-care (01) ==
LOC: CRAD 12:25
DX: S99.922A Unspecified injury of left foot, initial encounter (principal); Z98.890 Other specified postprocedural states
CPT/HCPCS: 73610; 73630